=== PATIENT | male | born 1970 | race Caucasian/White ===

== ENCOUNTER 2020-06-08 18:57 | Emergency (ER) | payer OTHER ==
[2020-06-08] MEDS ORDERED: ROCEPHIN 1 Gm-D5w 50 ml Bag** 1 G/50 ML IVPB IV STA (19:17)
[2020-06-08] MEDS ORDERED: DUONEB 0.5-3 MG/3 ml Neb IH ONE ×2 (19:17→19:36)
[2020-06-08] MEDS ORDERED: solu-MEDROL 125 MG IV ONE (19:17)
[2020-06-08] MEDS ORDERED: solu-MEDROL 125 MG ONE (19:27)
[2020-06-08] MEDS ORDERED: ROCEPHIN 1 Gm-D5w 50 ml Bag** 1 G/50 ML IVPB IV ONE (19:28)
[2020-06-08] MEDS ORDERED: Sodium Chloride 0.9% 1000 ML 1,000 ML ONE (19:28)
[2020-06-08] MEDS ORDERED: Sodium Chloride 0.9% 1000 ML 1,000 ML IV SCH (19:30)
[2020-06-08 19:31] LABS: Absolute Neutrophil Ct (ANC) 4.59 (1.4-6.9); BASOPHIL % 0.5 % (0.0-0.4); Basophil (Absolute #) 0.04 (0-0.4); Eosinophil % 1.2 % (0.00-5.0); Eosinophil (Absolute #) 0.09 (0-0.5); Hematocrit 45.7 % (42-50); Hemoglobin 15.3 gm/dl (12.5-18.0); Lymphocyte (Absolute #) 2.03 (1.0-4.6); Lymphocytes % 27.1 % (24.0-44.0); Mean Cell Volume 90.9 fl (78-100); Mean Corpuscular Hemoglobin 30.4 pg (26-32); Mean Corpuscular Hgb Concent. 33.5 g/dl (32-36); Mean Platelet Volume 9.4 fl (7.5-11.0); Monocyte (Absolute #) 0.73 (0.0-1.3); Monocytes % 9.8 % (0.0-12.0); Neutrophil % 61.4 % (36.0-66.0); Platelet Count 223 K/mm3 (150-450); Red Blood Count 5.03 M/mm3 (4.1-5.6); White Blood Count 7.5 K/mm3 (4.0-10.5)
--- NOTE | 2020-06-08 19:35 | ERPHSYRPT ---
- History of Present Illness Time Seen by Provider: 06/08/20 19:15 Source: patient Exam Limitations: no limitations Patient Subjective Stated Complaint: Pt states "I just woke up an hour ago or so and I can't catch my breath. I have been to Dr. Morales and I am on antib iotics for coughing up green stuff." Triage Nursing Assessment: Pt presented alert and oriented X 3, skin pwd Pt ambulates with an upright steady gait, able to speak in clear full sentences. Pt in tachypneic, anxious, voice raspy. Physician History: 49yo male smoker with productive cough, SOB, dizziness. Woke up with severe coughing fit. Green sputum. NO fever. Smokes 2 pks a day Gradual worsening cough over past week. Timing/Duration: week(s) (1), gradual onset, worse Activities at Onset: none Severity of Dyspnea-Max: severe Severity of Dyspnea-Current: moderate Possible Cause: no prior episodes Modifying Factors: Improves With: activity, coughing, deep breath Associated Symptoms: lightheadedness, productive cough (green) Allergies/Adverse Reactions: Penicillins Allergy (Severe, Verified 06/08/20 19:10) anaphylaxis Home Medications: Buprenorphine HCl/Naloxone HCl [Buprenorphin-Naloxon 8-2 mg Sl] 1 tab SL DAILY 06/08/20 [History] Nitrofurantoin Macro 100 mg [Macrobid 100MG Capsule] 100 mg PO BID 06/08/20 [History] Tamsulosin HCl 0.4 mg PO DAILY 06/08/20 [History] Hx Tetanus, Diphtheria Vaccination/Date Given: No Hx Influenza Vaccination/Date Given: No Hx Pneumococcal Vaccination/Date Given: No Immunizations Up to Date: Yes Travel Risk - International Travel Have you traveled outside of the country in past 3 weeks: No - Coronavirus Screening Are you exhibiting any of the following symptoms?: Yes Symptoms: Shortness of Breath Close contact with a COVID-19 positive Pt in past 14-21 Days: No - Review of Systems Constitutional: Malaise, No Fever, No Chills Eyes: No Symptoms Ears, Nose, & Throat: No Symptoms Respiratory: Cough, Dyspnea, Dyspnea on Exertion (ARIAS) Cardiac: No Chest Pain, No Edema, No Syncope Abdominal/Gastrointestinal: No Abdominal Pain, No Nausea, No Vomiting, No Diarrhea Genitourinary Symptoms: No Dysuria Musculoskeletal: No Back Pain, No Neck Pain Skin: No Rash Neurological: No Dizziness, No Focal Weakness, No Sensory Changes Psychological: No Symptoms Endocrine: No Symptoms All Other Systems: Reviewed and Negative - Past Medical History Pertinent Past Medical History: Yes Neurological History: No Pertinent History ENT History: No Pertinent History Cardiac History: No Pertinent History Respiratory History: No Pertinent History Endocrine Medical History: No Pertinent History GI Medical History: No Pertinent History History: Other Psycho-Social History: No Pertinent History Male Reproductive Disorders: No Pertinent History Other Medical History: takes flomax - Past Surgical History Past Surgical History: Yes Other Surgical History: spine. left hand. liver biopsy - Social History Smoking Status: Current every day smoker How long have you smoked: years Exposure to second hand smoke: Yes Drug Use: narcotics Patient Lives Alone: Yes - Nursing Vital Signs Nursing Vital Signs: Initial Vital Signs Temperature 97.7 F 06/08/20 19:01 Pulse Rate 114 H 06/08/20 19:01 Respiratory Rate 28 H 06/08/20 19:01 Blood Pressure 153/79 06/08/20 19:01 O2 Sat by Pulse Oximetry 98 06/08/20 19:01 Pain Scale Pain Intensity 0 - Physical Exam General Appearance: mild distress, alert Eye Exam: PERRL/EOMI Ears, Nose, Throat Exam: normal ENT inspection, normal pharynx Neck Exam: normal inspection, supple Respiratory Exam: diminished breath sounds Cardiovascular/Chest Exam: normal heart sounds, regular rate/rhythm Abdominal/Gastrointestinal Exam: soft, No tenderness, No distention, No mass Extremity Exam: non-tender, normal range of motion, normal inspection, no calf tenderness, no pedal edema Neurologic Exam: alert, oriented x 3, cooperative, 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, sensation nml, No motor deficits Skin Exam: normal color, warm, No dry Lymphatic Exam: No adenopathy SpO2: 99 - Course Nursing assessment & vital signs reviewed: Yes EKG Interpreted by Me: RATE (106), Sinus Tach, NORMAL AXIS, NORMAL INTERVALS, NORMAL QRS - Radiology Exams Chest X-ray Interpretation: Interpreted by me, Negative (RLL area appears slightly increased.) Ordered Tests: Active Orders 24 hr Category Date Time Status Manager Spanish STAT Care 06/08/20 19:19 Completed EKG-ER Only STAT Care 06/08/20 19:17 Completed IV Insertion STAT Care 06/08/20 19:17 Completed Oxygen-ED Only Nasal Cannula 2 lpm Care 06/08/20 19:17 Completed CHEST 2 VIEWS (PA AND LAT) Stat Exams 06/08/20 19:18 Completed BLOOD CULTURE Stat Lab 06/08/20 19:20 Ordered CBC W DIFF Stat Lab 06/08/20 19:20 Completed CMP Stat Lab 06/08/20 19:20 Completed D-DIMER QUANTITATIVE Stat Lab 06/08/20 19:20 Completed Lactic Acid Stat Lab 06/08/20 19:35 Completed MAGNESIUM Stat Lab 06/08/20 19:20 Completed NT PRO BNP Stat Lab 06/08/20 19:20 Completed PROTIME WITH INR Stat Lab 06/08/20 19:20 Completed PTT Stat Lab 06/08/20 19:20 Completed TROPONIN Q3H Lab 06/08/20 19:20 Completed Peak Expiratory Flow Rate ONCE RT 06/08/20 19:52 Completed Respiratory Therapy Assessment DAILY RT 06/08/20 19:52 Completed Medication Summary Discontinued Medications Generic Name Dose Route Start Last Admin Trade Name Freq PRN Reason Stop Dose Admin Albuterol/Ipratropium 3 ml 06/08/20 19:17 06/08/20 19:47 Duoneb 0.5-3 Mg/3 Ml Neb IH 06/08/20 19:18 3 ml STAT ONE Administration Albuterol/Ipratropium Confirm 06/08/20 19:36 Duoneb 0.5-3 Mg/3 Ml Neb Administered 06/08/20 19:37 Dose 3 ml IH .STK-MED ONE Sodium Chloride 1,000 mls @ 100 mls/hr 06/08/20 19:30 06/08/20 21:37 Sodium Chloride 0.9% 1000 Ml IV 07/08/20 19:29 0 mls/hr .Q10H DEEPTHI Infusion Ceftriaxone Sodium/Dextrose 1 g in 50 mls @ 100 mls/hr 06/08/20 19:17 06/08/20 20:36 Rocephin 1 Gm-D5w 50 Ml Bag IV 06/08/20 19:46 Infused STAT STA Infusion Ceftriaxone Sodium/Dextrose Confirm 06/08/20 19:28 Rocephin 1 Gm-D5w 50 Ml Bag Administered 06/08/20 19:29 Dose 1 g in 50 mls @ ud IV .STK-MED ONE Sodium Chloride Confirm 06/08/20 19:28 Sodium Chloride 0.9% 1000 Ml Administered 06/08/20 19:29 Dose 1,000 mls @ ud .ROUTE .STK-MED ONE Methylprednisolone Sodium Succinate 125 mg 06/08/20 19:17 06/08/20 19:29 Solu-Medrol 125 Mg IV 06/08/20 19:18 125 mg STAT ONE Administration Methylprednisolone Sodium Succinate Confirm 06/08/20 19:27 Solu-Medrol 125 Mg Administered 06/08/20 19:28 Dose 125 mg .ROUTE .STK-MED ONE Lab/Rad Data: Laboratory Result Diagrams 06/08/20 19:06/08/20 19:20 Laboratory Results 06/08/20 06/08/20 06/08/20 Range/Units 19:35 19:20 19:20 WBC (4.0-10.5) K/mm3 RBC (4.1-5.6) M/mm3 Hgb (12.5-18.0) gm/dl Hct (42-50) % MCV (78-100) fl MCH (26-32) pg MCHC (32-36) g/dl RDW (11.5-14.0) % Plt Count (150-450) K/mm3 MPV (7.5-11.0) fl Gran % (36.0-66.0) % Eos # (Auto) (0-0.5) Absolute Lymphs (auto) (1.0-4.6) Absolute Monos (auto) (0.0-1.3) Lymphocytes % (24.0-44.0) % Monocytes % (0.0-12.0) % Eosinophils % (0.00-5.0) % Basophils % (0.0-0.4) % Absolute Granulocytes (1.4-6.9) Basophils # (0-0.4) PT 12.6 (8.83-12.87) SECONDS INR 1.11 (0.8-3.0) APTT 28.1 (24.1-36.1) SECONDS D-Dimer 437 (215-500) ng/mL Sodium (137-145) mmol/L Potassium (3.5-5.1) mmol/L Chloride (98-107) mmol/L Carbon Dioxide (22-30) mmol/L Anion Gap (5-15) MEQ/L BUN (9-20) mg/dL Creatinine (0.66-1.25) mg/dL Estimated GFR ML/MIN Glucose (74-106) mg/dL Lactic Acid 1.3 (0.4-2.0) Calcium (8.4-10.2) mg/dL Magnesium (1.6-2.3) mg/dL Total Bilirubin (0.2-1.3) mg/dL AST (17-59) U/L ALT (0-50) U/L Alkaline Phosphatase (38-126) U/L Troponin I < 0.012 (0.000-0.034) ng/mL NT-Pro-B Natriuret Pep (0-450) pg/mL Serum Total Protein (6.3-8.2) g/dL Albumin (3.5-5.0) g/dL 06/08/20 06/08/20 Range/Units 19:20 19:20 WBC 7.5 (4.0-10.5) K/mm3 RBC 5.03 (4.1-5.6) M/mm3 Hgb 15.3 (12.5-18.0) gm/dl Hct 45.7 (42-50) % MCV 90.9 (78-100) fl MCH 30.4 (26-32) pg MCHC 33.5 (32-36) g/dl RDW 13.0 (11.5-14.0) % Plt Count 223 (150-450) K/mm3 MPV 9.4 (7.5-11.0) fl Gran % 61.4 (36.0-66.0) % Eos # (Auto) 0.09 (0-0.5) Absolute Lymphs (auto) 2.03 (1.0-4.6) Absolute Monos (auto) 0.73 (0.0-1.3) Lymphocytes % 27.1 (24.0-44.0) % Monocytes % 9.8 (0.0-12.0) % Eosinophils % 1.2 (0.00-5.0) % Basophils % 0.5 (0.0-0.4) % Absolute Granulocytes 4.59 (1.4-6.9) Basophils # 0.04 (0-0.4) PT (8.83-12.87) SECONDS INR (0.8-3.0) APTT (24.1-36.1) SECONDS D-Dimer (215-500) ng/mL Sodium 137 (137-145) mmol/L Potassium 3.7 (3.5-5.1) mmol/L Chloride 100 (98-107) mmol/L Carbon Dioxide 28 (22-30) mmol/L Anion Gap 11.9 (5-15) MEQ/L BUN 20 (9-20) mg/dL Creatinine 1.13 (0.66-1.25) mg/dL Estimated GFR > 60.0 ML/MIN Glucose 92 (74-106) mg/dL Lactic Acid (0.4-2.0) Calcium 9.5 (8.4-10.2) mg/dL Magnesium 2.1 (1.6-2.3) mg/dL Total Bilirubin 1.20 (0.2-1.3) mg/dL AST 74 H (17-59) U/L ALT 68 H (0-50) U/L Alkaline Phosphatase 79 (38-126) U/L Troponin I (0.000-0.034) ng/mL NT-Pro-B Natriuret Pep 30.4 (0-450) pg/mL Serum Total Protein 8.4 H (6.3-8.2) g/dL Albumin 4.7 (3.5-5.0) g/dL - Progress Progress: improved Air Movement: good Progress Note: 06/08/20 21:28 Pneumonia workup CXR with no obvious infiltrate. Labs normal Pt with tachycardia but not hypoxic. DuoNeb, steroids. Pt breathing much better. Ambulating in room without drop in O2. Rx cipro, prednisone, MDI and cough suppressant. DC home. Blood Culture(s) Obtained: Yes Antibiotics given: Yes Counseled pt/family regarding: lab results, diagnosis, need for follow-up, rad results, smoking cessation - Departure Departure Disposition: Home Clinical Impression: Acute bronchitis Qualifiers: Bronchitis organism: unspecified organism Qualified Code(s): J20.9 - Acute bronchitis, unspecified Condition: Stable Critical Care Time: No Referrals: DIANA URIBE [Primary Care Provider] - Instructions: Acute Bronchitis, Adult (DC), Shortness of Breath (Dyspnea) (DC) Additional Instructions: MOnitor symptoms closely. Take meds as prescribed. STOP smoking or at least cut down. Follow up with Dr. Uribe for recheck Return to ER if worse. Prescriptions: Ciprofloxacin [Cipro 500 MG] 500 mg PO BID #14 tablet Prednisone 20 mg [Deltasone 20 mg] 40 mg PO DAILY 5 Days #10 tablet Albuterol 8 gm Mdi Hfa [Ventolin Hfa MDI] 8 gm IH Q4H PRN #1 [email or web address] PRN Reason: Shortness Of Breath/Wheezing
[2020-06-08 19:38] LABS: INR 1.11 (0.8-3.0); PROTIME 12.6 SECONDS (8.83-12.87)
[2020-06-08 19:41] LABS: PTT 28.1 SECONDS (24.1-36.1)
[2020-06-08 19:52] LABS: ALBUMIN 4.7 g/dL (3.5-5.0); ALKALINE PHOSPHATASE 79 U/L (38-126); ANION GAP 11.9 MEQ/L (5-15); BLOOD UREA NITROGEN 20 mg/dL (9-20); CHLORIDE 100 mmol/L (98-107); Calcium 9.5 mg/dL (8.4-10.2); Carbon Dioxide 28 mmol/L (22-30); Creatinine 1 1.13 mg/dL (0.66-1.25); EST GLOMERULAR FILTRATION RATE > 60.0 ML/MIN; Glucose 92 mg/dL (74-106); MAGNESIUM 2.1 mg/dL (1.6-2.3); NT PRO BNP 30.4 pg/mL (0-450); Potassium 3.7 mmol/L (3.5-5.1); SGOT/AST 74 U/L (17-59); SGPT/ALT 68 U/L (0-50); SODIUM 137 mmol/L (137-145); Total Protein 8.4 g/dL (6.3-8.2)
[2020-06-08 21:41] VITALS: BP 125/70; PULSE 96
--- NOTE | 2020-06-08 22:14 | XRAY ---
Indication: Cough, dyspnea, and dizziness. Comparison: February 21, 2020. PA/lateral chest remains hyperinflated and clear with incidental right apical calcified granuloma. Heart is not enlarged. Bony thorax intact. No new/acute findings.
[2020-06-09 05:13] VITALS: O2SAT 99
== END 2020-06-08 21:38 | disposition home or self-care (01) ==
LOC: ED 18:57
DX: J20.9 Acute bronchitis, unspecified (principal)
CPT/HCPCS: 36000; 36415; 71046; 80053; 83605; 83735; 83880; 84484; 85025; 85379; 85610; 85730; 87040; 93005; 93041; 94150; 94640; 96360; 96361; 96374; 99284; J0696; J2930; A9270-GY

== ENCOUNTER 2024-10-05 20:39 | Emergency (ER) | payer OTHER ==
--- NOTE | 2024-10-05 20:57 | ERPHSYRPT ---
- History of Present Illness Time Seen by Provider: 10/05/24 20:57 Source: patient Exam Limitations: no limitations Physician History: This is a 53-year-old white male patient who presents by private vehicle because of rapid heart rate sensation intermittently for the last 3 days. Patient denies chest pain. He only gets short of breath when his heart is racing fast p er his report. Patient states that he does smoke tobacco and drinks coffee but he does not use energy drinks. Patient does have prostate issues. There is been no new medications. Patient has been under a lot of stress lately and that also seems to increase his heart rate. Patient has never had a heart attack and has never been diagnosed with coronary artery disease. Timing/Duration: day(s) (3), intermittent Activities at Onset: none Severity of Pain-Max: none Severity of Pain-Current: none Modifying Factors: Improves With: other (Sensation of rapid heart rate) Nitro Today/Relief: no nitro taken today Aspirin Treatment Today: no aspirin today Associated Symptoms: denies symptoms, No chest pain Prior Chest Pain/Cardiac Workup: no prior chest pain, no prior cardiac workup Allergies/Adverse Reactions: Penicillins Allergy (Severe, Verified 10/05/24 21:14) anaphylaxis Home Medications: Buprenorphine HCl/Naloxone HCl [Buprenorphin-Naloxon 8-2 mg Sl] 1 tab SL DAILY 06/08/20 [History] Tamsulosin HCl 0.4 mg PO DAILY 06/08/20 [History] Hx Tetanus, Diphtheria Vaccination/Date Given: No Hx Influenza Vaccination/Date Given: No Hx Pneumococcal Vaccination/Date Given: No Travel Risk - International Travel Have you traveled outside of the country in past 3 weeks: No - Emerging Infectious Disease Are you exhibiting symptoms associated with any current EIDs: No - Review of Systems Constitutional: No Symptoms Eyes: No Symptoms Ears, Nose, & Throat: No Symptoms Respiratory: No Symptoms Cardiac: Palpitations, No Chest Pain Abdominal/Gastrointestinal: No Symptoms Genitourinary Symptoms: No Symptoms Musculoskeletal: No Symptoms Skin: No Symptoms Neurological: No Symptoms Psychological: No Symptoms Endocrine: No Symptoms Hematologic/Lymphatic: No Symptoms Immunological/Allergic: No Symptoms All Other Systems: Reviewed and Negative - Past Medical History Pertinent Past Medical History: Yes Neurological History: No Pertinent History ENT History: No Pertinent History Cardiac History: No Pertinent History Respiratory History: No Pertinent History Endocrine Medical History: No Pertinent History GI Medical History: No Pertinent History History: Other Psycho-Social History: No Pertinent History Male Reproductive Disorders: No Pertinent History Other Medical History: takes flomax - Past Surgical History Past Surgical History: Yes Other Surgical History: spine. left hand. liver biopsy - Social History Smoking Status: Current every day smoker How long have you smoked: years Exposure to second hand smoke: Yes Drug Use: narcotics Patient Lives Alone: Yes - Nursing Vital Signs Nursing Vital Signs: Initial Vital Signs Temperature 98.9 F 10/05/24 21:03 Pulse Rate 99 H 10/05/24 21:03 Respiratory Rate 16 10/05/24 21:03 Blood Pressure 144/90 10/05/24 21:03 O2 Sat by Pulse Oximetry 94 L 10/05/24 21:03 Pain Scale Pain Intensity 0 - Physical Exam General Appearance: no apparent distress, alert, anxiety Eye Exam: PERRL/EOMI, eyes nml inspection Ears, Nose, Throat Exam: normal ENT inspection, moist mucous membranes Neck Exam: normal inspection, non-tender, supple, full range of motion Respiratory Exam: normal breath sounds, lungs clear, No chest tenderness, No respiratory distress Cardiovascular Exam: tachycardia Gastrointestinal/Abdomen Exam: soft, normal bowel sounds, No tenderness Rectal Exam: not done Back Exam: normal inspection, normal range of motion, No CVA tenderness, No vertebral tenderness Extremity Exam: normal inspection, normal range of motion, pelvis stable Neurologic Exam: alert, oriented x 3, cooperative, 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 QTc is 431.) Ordered Tests: Active Orders 24 hr Category Date Time Status EKG-ER Only STAT Care 10/05/24 21:20 Active IV Insertion STAT Care 10/05/24 21:20 Active Pulse Oximetry (ED) STAT Care 10/05/24 21:20 Active CBC W DIFF Stat Lab 10/05/24 21:00 Completed CMP Stat Lab 10/05/24 21:00 Completed MAGNESIUM Stat Lab 10/05/24 21:00 Completed TROPONIN Q4H Lab 10/05/24 21:00 Completed TROPONIN Q4H Lab 10/06/24 01:30 Ordered TROPONIN Q4H Lab 10/06/24 05:30 Ordered Medication Summary Discontinued Medications Generic Name Dose Route Start Last Admin Trade Name Freq PRN Reason Stop Dose Admin Metoprolol Tartrate 25 mg 10/05/24 21:20 10/05/24 21:28 Metoprolol Tartrate 25 Mg Tab PO 10/05/24 21:21 25 mg STAT ONE Administration Metoprolol Tartrate Confirm 10/05/24 21:26 Metoprolol Tartrate 25 Mg Tab Administered 10/05/24 21:27 Dose 25 mg .ROUTE .[employer] ONE Lab/Rad Data: Laboratory Result Diagrams 10/05/24 21:00 10/05/24 21:00 Laboratory Results 10/05/24 10/05/24 10/05/24 Range/Units 21:00 21:00 21:00 WBC 7.8 (4.23-9.07) x10^3/uL RBC 4.53 L (4.63-6.08) x10^6/uL Hgb 14.9 (13.7-17.5) g/dL Hct 43.3 (40.1-51.0) % MCV 95.6 H (79.0-92.2) fL MCH 32.9 H (25.7-32.2) pg MCHC 34.4 (32.3-36.5) g/dL RDW 12.3 (11.6-14.4) % Plt Count 208 (163-337) x10^3/uL MPV 9.3 L (9.4-12.4) fL Gran % 52.0 (34.0-67.9) % Immature Gran % (Auto) 0.3 (0.001-0.429) % Nucleat RBC Rel Count 0.0 (0.00-0.2) % Eos # (Auto) 0.16 (0.04-0.54) x10^3/uL Immature Gran # (Auto) 0.02 (0.001-0.031) x10^3u/L Absolute Lymphs (auto) 2.80 (1.32-3.57) x10^3/uL Absolute Monos (auto) 0.70 (0.30-0.82) x10^3/uL Absolute Nucleated RBC 0.00 (0.00-0.012) x10^3u/L Lymphocytes % 36.0 (21.8-53.1) % Monocytes % 9.0 (5.3-12.2) % Eosinophils % 2.1 (0.8-7.0) % Basophils % 0.6 (0.2-1.2) % Absolute Granulocytes 4.04 (1.78-5.38) x10^3/uL Basophils # 0.05 (0.01-0.08) x10^3/uL Sodium 140 (135-145) mmol/L Potassium 3.6 (3.5-5.1) mmol/L Chloride 99 (98-107) mmol/L Carbon Dioxide 31 H (22-30) mmol/L Anion Gap 13.0 (5-15) MEQ/L BUN 13 (9-20) mg/dL Creatinine 1.06 (0.66-1.25) mg/dL Estimated GFR 83.9 ML/MIN Glucose 89 (74-106) mg/dL Calcium 8.9 (8.4-10.2) mg/dL Magnesium 2.0 (1.6-2.3) mg/dL Total Bilirubin 0.90 (0.2-1.3) mg/dL AST 61 H (17-59) U/L ALT 42 (0-50) U/L Alkaline Phosphatase 81 (38-126) U/L Troponin I < 0.012 (0.000-0.033) ng/mL Serum Total Protein 7.2 (6.3-8.2) g/dL Albumin 4.6 (3.5-5.0) g/dL - Progress Progress: improved, re-examined Air Movement: good Progress Note: 10/05/24 21:36 My medical decision making and the assignment of moderate complexity to this patient's medical issue today is based on review of the patient's past medical history, review of the patient's medication list, reviewed patient drug allergy list, history present illness and physical findings on examination. The workup in this patient includes placement of a intravenous line, CBC, CMP, magnesium level, troponin level, twelve-lead EKG. Differential diagnosis includes but is not limited to electrolyte abnormalities, arrhythmia, myocardial infarction, electrolyte abnormalities 10/05/24 22:09 I interpreted the patient's laboratory data results. Based on the laboratory data results, there are no acute, emergent medical issues. I reexamined the patient. He has no shortness of breath and he has no chest pain. Blood Culture(s) Obtained: No Antibiotics given: No Counseled pt/family regarding: lab results, diagnosis, need for follow-up Medical Desision Making - Diagnostic Testing Diagnostic test were ordered, analyzed, and reviewed by me: Yes - Risk of complications Low Risk: Low risk of morbidity from additional dx testing or treatment - Departure Departure Disposition: Home Clinical Impression: Palpitations Condition: Stable Critical Care Time: No Referrals: DIANA URIBE [Primary Care Provider] - Follow up/PCP as directed Additional Instructions: Drink plenty of clear liquids but avoid caffeinated drinks. Decrease your smoking of tobacco. Call your primary care provider tomorrow, 10/06/2024, to make arrangements for further evaluation and management.
[2024-10-05 21:05] VITALS: TEMP 98.9
[2024-10-05] MEDS ORDERED: Lopressor 25MG Tab ONE (21:26)
[2024-10-05 21:28] LABS: Absolute Neutrophil Ct (ANC) 4.04 x10^3/uL (1.78-5.38); BASOPHIL % 0.6 % (0.2-1.2); Basophil (Absolute #) 0.05 x10^3/uL (0.01-0.08); Eosinophil % 2.1 % (0.8-7.0); Eosinophil (Absolute #) 0.16 x10^3/uL (0.04-0.54); Hematocrit 43.3 % (40.1-51.0); Hemoglobin 14.9 g/dL (13.7-17.5); IMMATURE GRAN # 0.02 x10^3u/L (0.001-0.031); IMMATURE GRAN % 0.3 % (0.001-0.429); Mean Cell Volume 95.6 fL (79.0-92.2); Mean Corpuscular Hemoglobin 32.9 pg (25.7-32.2); Mean Corpuscular Hgb Concent. 34.4 g/dL (32.3-36.5); Mean Platelet Volume 9.3 fL (9.4-12.4); Platelet Count 208 x10^3/uL (163-337); Red Blood Count 4.53 x10^6/uL (4.63-6.08); Red Cell Distribution Width 12.3 % (11.6-14.4); White Blood Count 7.8 x10^3/uL (4.23-9.07)
[2024-10-05] MEDS: Lopressor 25MG Tab PO ONE (21:28)
[2024-10-05 21:42] LABS: ALBUMIN 4.6 g/dL (3.5-5.0); BILIRUBIN,TOTAL 0.9 mg/dL (0.2-1.3); Calcium 8.9 mg/dL (8.4-10.2); Creatinine 1 1.06 mg/dL (0.66-1.25); EST GLOMERULAR FILTRATION RATE 83.9 ML/MIN; Potassium 3.6 mmol/L (3.5-5.1); Total Protein 7.2 g/dL (6.3-8.2)
[2024-10-05 23:24] VITALS: BP 108/72; PULSE 102; RESP 18; O2SAT 99
== END 2024-10-05 23:07 | disposition home or self-care (01) ==
LOC: ED 20:39
DX: R00.2 Palpitations (principal); Z79.891 Long term (current) use of opiate analgesic; Z79.899 Other long term (current) drug therapy; Z72.0 Tobacco use
CPT/HCPCS: 36415; 80053; 83735; 84484; 85025; 93005; 94760; 99284; A9270-GY

== ENCOUNTER 2024-10-17 09:49 | Emergency (ER) | payer OTHER ==
--- NOTE | 2024-10-17 10:23 | ERPHSYRPT ---
- History of Present Illness Time Seen by Provider: 10/17/24 10:19 Exam Limitations: no limitations Physician History: Patient is a 54-year-old male presents to our ED for evaluation of right upper extremity numbness, feeling cognitively cloudy. Patient advises that he has been experiencing intermittent heart palpitations. No romi chest pain. No dizziness no syncope. No associated nausea vomiting or diaphoresis. Patient states the right arm numbness and cloudy cognition started this morning at approximately 5:30 AM. The heart palpitations have been ongoing for approximately 2 weeks. Patient is scheduled to see a director of math tomorrow morning. No trauma no fever. Patient is a smoker. He admits to an intermittent cough that has been ongoing for 10 years. Patient states he othe rwise feels well. He voices no other complaints or concerns at this time. 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 Patient has a drill in his right upper extremity all the time. Patient believes that this may be contributing to his right upper extremity numbness. Portions of this note were created with voice recognition technology. There may be grammatical, spelling, punctuation or sound alike errors Timing/Duration: today Severity: moderate Modifying Factors: Improves With: nothing Associated Symptoms: other (Heart palpitations) Allergies/Adverse Reactions: Penicillins Allergy (Severe, Verified 10/17/24 10:07) anaphylaxis Home Medications: Buprenorphine HCl/Naloxone HCl [Buprenorphin-Naloxon 8-2 mg Sl] 1 tab SL DAILY 06/08/20 [History] Tamsulosin HCl 0.4 mg PO DAILY 06/08/20 [History] Baclofen 5 mg PO BID PRN 10/17/24 [History] Famotidine 20 mg [Pepcid 20 MG] 20 mg PO HS 10/17/24 [History] Naproxen 500 mg [Naprosyn 500 MG] 500 mg PO BID 10/17/24 [History] Testosterone Cypionate 100 mg IM WEEKLY 10/17/24 [History] Hx Tetanus, Diphtheria Vaccination/Date Given: No Hx Influenza Vaccination/Date Given: No Hx Pneumococcal Vaccination/Date Given: No Travel Risk - Emerging Infectious Disease Are you exhibiting symptoms associated with any current EIDs: No - Review of Systems Constitutional: No Symptoms, No Fever, No Chills Eyes: No Symptoms Ears, Nose, & Throat: No Symptoms Respiratory: No Symptoms, No Cough, No Dyspnea Cardiac: No Symptoms, No Chest Pain, No Edema, No Syncope Abdominal/Gastrointestinal: No Symptoms, No Abdominal Pain, No Nausea, No Vomiting, No Diarrhea Genitourinary Symptoms: No Symptoms, No Dysuria Musculoskeletal: No Symptoms, No Back Pain, No Neck Pain Skin: No Symptoms, No Rash Neurological: No Symptoms, No Dizziness, No Focal Weakness, No Sensory Changes Psychological: No Symptoms Endocrine: No Symptoms Hematologic/Lymphatic: No Symptoms Immunological/Allergic: No Symptoms All Other Systems: Reviewed and Negative - Past Medical History Pertinent Past Medical History: Yes Neurological History: No Pertinent History ENT History: No Pertinent History Cardiac History: No Pertinent History Respiratory History: No Pertinent History Endocrine Medical History: No Pertinent History GI Medical History: No Pertinent History History: Other Psycho-Social History: No Pertinent History Male Reproductive Disorders: No Pertinent History Other Medical History: takes flomax - Past Surgical History Past Surgical History: Yes Other Surgical History: spine. left hand. liver biopsy - Social History Smoking Status: Current every day smoker How long have you smoked: years Exposure to second hand smoke: Yes Drug Use: narcotics Patient Lives Alone: Yes - Social Determinants of Health Will the patient participate in the screening: Declined to provide - Nursing Vital Signs Nursing Vital Signs: Initial Vital Signs Temperature 98.4 F 10/17/24 10:03 Pulse Rate 99 H 10/17/24 10:03 Respiratory Rate 18 10/17/24 10:03 Blood Pressure 139/117 10/17/24 10:03 O2 Sat by Pulse Oximetry 97 10/17/24 10:03 Pain Scale Pain Intensity 0 - Physical Exam General Appearance: no apparent distress, alert Eye Exam: PERRL/EOMI, eyes nml inspection Ears, Nose, Throat Exam: normal ENT inspection, TMs normal, pharynx normal, moist mucous membranes Neck Exam: normal inspection, non-tender, supple, full range of motion Respiratory Exam: normal breath sounds, lungs clear, airway intact, No respiratory distress Cardiovascular Exam: regular rate/rhythm, normal heart sounds, normal peripheral pulses Gastrointestinal/Abdomen Exam: soft, normal bowel sounds, No tenderness, No mass Back Exam: normal inspection, normal range of motion, No CVA tenderness, No vertebral tenderness Extremity Exam: normal inspection, normal range of motion, pelvis stable Neurologic Exam: alert, oriented x 3, cooperative, normal mood/affect, sensation nml, No motor deficits Skin Exam: normal color, warm, dry, No rash Lymphatic Exam: No adenopathy SpO2 Interpretation: normal SpO2: 96 O2 Delivery: Room Air - Course Nursing assessment & vital signs reviewed: Yes EKG Interpreted by Me: RATE (80), Sinus Rhythm, NORMAL AXIS, NORMAL INTERVALS, N ORMAL QRS - Radiology Exams Chest X-ray Interpretation: Teleradiologist Report (Lung granuloma, no new or acute findings) - CT Exams Head CT Interpretation: Tele-radiologist Report (No acute findings observed CTA head/no LVO) Other CT Interpretation: Tele-radiologist Report (No acute findings observed CTA neck/no LVO) Ordered Tests: Active Orders 24 hr Category Date Time Status AMA [Release AMA] OM.NOW Care 10/17/24 15:53 Completed Air Brush Operator STAT Care 10/17/24 10:17 Completed EKG-ER Only STAT Care 10/17/24 10:16 Completed IV Insertion STAT Care 10/17/24 10:16 Completed Pulse Oximetry (ED) STAT Care 10/17/24 10:16 Completed CHEST 1 VIEW (PORTABLE) Stat Exams 10/17/24 10:[address] ANGIOGRAPHY NECK [CT] Stat Exams 10/17/24 14:54 Completed CTA HEAD W AND/OR WO CONTRAST [CT] Stat Exams 10/17/24 14:53 Completed HEAD WITHOUT CONTRAST [CT] Stat Exams 10/17/24 13:54 Completed CBC W DIFF Stat Lab 10/17/24 10:14 Completed CMP Stat Lab 10/17/24 10:14 Completed NT PRO BNPII Stat Lab 10/17/24 10:14 Completed TROPONIN Q4H Lab 10/17/24 10:14 Completed TROPONIN Q4H Lab 10/17/24 12:32 Completed Medication Summary Discontinued Medications Generic Name Dose Route Start Last Admin Trade Name Freq PRN Reason Stop Dose Admin Aspirin 324 mg 10/17/24 14:55 10/17/24 15:02 Aspirin 81 Mg Tab.Chew PO 10/17/24 14:56 324 mg STAT ONE Administration Aspirin Confirm 10/17/24 14:59 Aspirin 81 Mg Tab.Chew Administered 10/17/24 15:00 Dose 324 mg .ROUTE .STK-MED ONE Sodium Chloride 1,000 mls @ 75 mls/hr 10/17/24 15:00 10/17/24 15:05 Sodium Chloride 0.9% 1000 Ml IV 11/16/24 14:59 75 mls/hr .[id number] [id number] Administration Sodium Chloride Confirm 10/17/24 15:00 Sodium Chloride 0.9% 1000 Ml Administered 10/17/24 15:01 Dose 1,000 mls @ ud .ROUTE .STK-MED ONE Lab/Rad Data: Laboratory Result Diagrams 10/17/24 10:14 10/17/24 10:14 Laboratory Results 10/17/24 10/17/24 10/17/24 Range/Units 12:32 10:32 10:14 WBC (4.23-9.07) x10^3/uL RBC (4.63-6.08) x10^6/uL Hgb (13.7-17.5) g/dL Hct (40.1-51.0) % MCV (79.0-92.2) fL MCH (25.7-32.2) pg MCHC (32.3-36.5) g/dL RDW (11.6-14.4) % Plt Count (163-337) x10^3/uL MPV (9.4-12.4) fL Gran % (34.0-67.9) % Immature Gran % (Auto) (0.001-0.429) % Nucleat RBC Rel Count (0.00-0.2) % Eos # (Auto) (0.04-0.54) x10^3/uL Immature Gran # (Auto) (0.001-0.031) x10^3u/L Absolute Lymphs (auto) (1.32-3.57) x10^3/uL Absolute Monos (auto) (0.30-0.82) x10^3/uL Absolute Nucleated RBC (0.00-0.012) x10^3u/L Lymphocytes % (21.8-53.1) % Monocytes % (5.3-12.2) % Eosinophils % (0.8-7.0) % Basophils % (0.2-1.2) % Absolute Granulocytes (1.78-5.38) x10^3/uL Basophils # (0.01-0.08) x10^3/uL Sodium (135-145) mmol/L Potassium (3.5-5.1) mmol/L Chloride (98-107) mmol/L Carbon Dioxide (22-30) mmol/L Anion Gap (5-15) MEQ/L BUN (9-20) mg/dL Creatinine (0.66-1.25) mg/dL Estimated GFR ML/MIN Glucose (74-106) mg/dL Calcium (8.4-10.2) mg/dL Total Bilirubin (0.2-1.3) mg/dL AST (17-59) U/L ALT (0-50) U/L Alkaline Phosphatase (38-126) U/L Troponin I < 0.012 (0.000-0.033) ng/mL NT-Pro-B Natriuret Pep 20.8 (<300) pg/mL Serum Total Protein (6.3-8.2) g/dL Albumin (3.5-5.0) g/dL Influenza Type A Ag NEGATIVE (NEGATIVE) Influenza Type B Ag NEGATIVE (NEGATIVE) RSV (PCR) NEGATIVE (NEGATIVE) SARS-CoV-2 (PCR) NEGATIVE (NEGATIVE) 10/17/24 10/17/24 10/17/24 Range/Units 10:14 10:14 10:14 WBC 6.9 (4.23-9.07) x10^3/uL RBC 4.90 (4.63-6.08) x10^6/uL Hgb 16.3 (13.7-17.5) g/dL Hct 47.8 (40.1-51.0) % MCV 97.6 H (79.0-92.2) fL MCH 33.3 H (25.7-32.2) pg MCHC 34.1 (32.3-36.5) g/dL RDW 12.6 (11.6-14.4) % Plt Count 248 (163-337) x10^3/uL MPV 8.7 L (9.4-12.4) fL Gran % 62.8 (34.0-67.9) % Immature Gran % (Auto) 0.4 (0.001-0.429) % Nucleat RBC Rel Count 0.0 (0.00-0.2) % Eos # (Auto) 0.11 (0.04-0.54) x10^3/uL Immature Gran # (Auto) 0.03 (0.001-0.031) x10^3u/L Absolute Lymphs (auto) 1.77 (1.32-3.57) x10^3/uL Absolute Monos (auto) 0.60 (0.30-0.82) x10^3/uL Absolute Nucleated RBC 0.00 (0.00-0.012) x10^3u/L Lymphocytes % 25.8 (21.8-53.1) % Monocytes % 8.7 (5.3-12.2) % Eosinophils % 1.6 (0.8-7.0) % Basophils % 0.7 (0.2-1.2) % Absolute Granulocytes 4.31 (1.78-5.38) x10^3/uL Basophils # 0.05 (0.01-0.08) x10^3/uL Sodium 139 (135-145) mmol/L Potassium 4.0 (3.5-5.1) mmol/L Chloride 101 (98-107) mmol/L Carbon Dioxide 27 (22-30) mmol/L Anion Gap 14.3 (5-15) MEQ/L BUN 14 (9-20) mg/dL Creatinine 0.89 (0.66-1.25) mg/dL Estimated GFR 101.8 ML/MIN Glucose 112 H (74-106) mg/dL Calcium 9.1 (8.4-10.2) mg/dL Total Bilirubin 0.60 (0.2-1.3) mg/dL AST 58 (17-59) U/L ALT 47 (0-50) U/L Alkaline Phosphatase 77 (38-126) U/L Troponin I < 0.012 (0.000-0.033) ng/mL NT-Pro-B Natriuret Pep (<300) pg/mL Serum Total Protein 7.6 (6.3-8.2) g/dL Albumin 4.8 (3.5-5.0) g/dL Influenza Type A Ag (NEGATIVE) Influenza Type B Ag (NEGATIVE) RSV (PCR) (NEGATIVE) SARS-CoV-2 (PCR) (NEGATIVE) - Progress Progress: improved Progress Note: Case discussed with hospitalist Dr. Sanchez who requests CT head and teleneuro consultation in light of patient's right upper extremity numbness. CT head ordered. We will consult teleneuro after obtaining results 10/17/24 13:55 Teleneurologist feels that patient may have had a TIA. CTA head neck ordered. CTA head neck completed. Upon returning from CTA patient decided to go home. Patient stated he feels fine and that he would return if symptoms reoccurred. We explained to patient that if he had a TIA that a major stroke would potentially be occurring in the next few days. And spite of discussing the risk s of leaving patient decided to leave AMA. Patient is of sound mind. Patient is appropriate to make informed and independent medical decisions. Patient understands that leaving AGAINST MEDICAL ADVICE can result in delayed diagnosis, increased risk of morbidity, mortality, short and long-term disability including . In spite of these risks, patient has decided to leave AGAINST MEDICAL ADVICE. Patient understands that he may return to our ED at any point if he reconsiders. Patient agrees to follow-up with his primary care doctor within 48 hours for reevaluation. Patient voices no other complaints or concerns at this time. We will release patient AGAINST MEDICAL ADVICE per their request. Complexity of problem addressed is moderate acute complicated no critical care time. Complex of data reviewed and analyzed is extensive. Test ordered chest reviewed results analyzed and correlated clinically with history and physical exam. Management discussed with hospitalist and neurologist. Risk of complication and or risk of morbidity/mortality of patient management is high. Patient requires hospitalization for further evaluation and treatment. Vital stable. Time spent to discharge patient AMA is approximately 15 minutes. No social determinants of health present to impede follow-up. Portions of this note were created with voice recognition technology. There may be grammatical, spelling, punctuation or sound alike errors 10/17/24 15:56 Counseled pt/family regarding: lab results, diagnosis, rad results - Departure Departure Disposition: Observation Clinical Impression: Heart palpitations, Arm numbness, Cough, Smoker, TIA (transient ischemic attack) Condition: Stable Critical Care Time: No Referrals: DIANA URIBE [Primary Care Provider] - Follow up/PCP as directed
[2024-10-17 10:32] LABS: Absolute Neutrophil Ct (ANC) 4.31 x10^3/uL (1.78-5.38); BASOPHIL % 0.7 % (0.2-1.2); Basophil (Absolute #) 0.05 x10^3/uL (0.01-0.08); Eosinophil % 1.6 % (0.8-7.0); Eosinophil (Absolute #) 0.11 x10^3/uL (0.04-0.54); Hematocrit 47.8 % (40.1-51.0); Hemoglobin 16.3 g/dL (13.7-17.5); IMMATURE GRAN # 0.03 x10^3u/L (0.001-0.031); IMMATURE GRAN % 0.4 % (0.001-0.429); Lymphocyte (Absolute #) 1.77 x10^3/uL (1.32-3.57); Lymphocytes % 25.8 % (21.8-53.1); Mean Cell Volume 97.6 fL (79.0-92.2); Mean Corpuscular Hemoglobin 33.3 pg (25.7-32.2); Mean Corpuscular Hgb Concent. 34.1 g/dL (32.3-36.5); Mean Platelet Volume 8.7 fL (9.4-12.4); Monocytes % 8.7 % (5.3-12.2); Neutrophil % 62.8 % (34.0-67.9); Platelet Count 248 x10^3/uL (163-337); Red Cell Distribution Width 12.6 % (11.6-14.4); White Blood Count 6.9 x10^3/uL (4.23-9.07)
[2024-10-17 10:38] VITALS: TEMP 98.4
--- NOTE | 2024-10-17 10:43 | XRAY ---
Indication: Chest pain. Comparison: October 06, 2023 Portable chest unchanged again demonstrating normal heart and lungs with incidental right apical calcified granuloma. Bony thorax intact with minimal degenerative changes. No new/acute findings.
[2024-10-17 10:48] LABS: ALBUMIN 4.8 g/dL (3.5-5.0); ANION GAP 14.3 MEQ/L (5-15); BILIRUBIN,TOTAL 0.6 mg/dL (0.2-1.3); Calcium 9.1 mg/dL (8.4-10.2); Creatinine 1 0.89 mg/dL (0.66-1.25); EST GLOMERULAR FILTRATION RATE 101.8 ML/MIN; Total Protein 7.6 g/dL (6.3-8.2)
[2024-10-17 11:08] LABS: INFLUENZA A NEGATIVE (NEGATIVE); INFLUENZA B NEGATIVE (NEGATIVE); RESPIRATORY SYNCTIAL VIRUS NEGATIVE (NEGATIVE); SARS-CoV-2 Xpert Express NEGATIVE (NEGATIVE)
[2024-10-17 13:55] VITALS: RESP 12
--- NOTE | 2024-10-17 14:46 | XRAY ---
Indication: Right arm numbness. Multiple contiguous axial images obtained through the head without contrast. Comparison: None Normal appearing brain parenchyma, ventricles, and bony calvarium. Mild mucosal thickening both ethmoid sinuses. Remaining visualized paranasal sinuses and mastoid air cells are clear. Impression: Normal CT head without contrast exam. Incidental mild paranasal sinus disease.
[2024-10-17] MEDS ORDERED: BABY ASPIRIN 81 MG CHEW ONE (14:59)
[2024-10-17] MEDS ORDERED: Sodium Chloride 0.9% 1000 ML 1,000 ML ONE (15:00)
[2024-10-17] MEDS: BABY ASPIRIN 81 MG CHEW PO ONE (15:02)
[2024-10-17] MEDS: Sodium Chloride 0.9% 1000 ML 1,000 ML IV SCH (15:05)
[2024-10-17 15:48] VITALS: BP 140/115; PULSE 83; O2SAT 96
--- NOTE | 2024-10-17 17:04 | XRAY ---
Indication: Right arm numbness. Normal CT head. Conventional contrast enhanced CTA neck performed using 80 cc Isovue 370 contrast. 2-D sagittal and coronal reformatted images obtained. Additional 3-D reformatted images using separate workstation. Comparison: None Normal CTA appearance to aortic arch including right brachiocephalic, left common carotid, and left subclavian arteries. Normal CTA appearance to common carotid, carotid bulb, internal carotid, and external carotid arteries bilaterally. Normal CTA appearance to vertebral arteries bilaterally. Scattered prominent cervical and submandibular lymph nodes, largest right submandibular measuring 1.2 x 1.9 cm. Parotid and submandibular glands are bilaterally symmetric. Thyroid gland enhances homogeneously. Supra and infraglottic airway widely patent. Lung apices clear. Osseous structures intact with mild/moderate multilevel cervical degenerative spondylosis and remote C5-C6 fusion. No suspicious bony lesions. Patient edentulous. Impression: 1. Normal CTA neck with contrast exam. 2. Incidental nonspecific prominent cervical/submandibular lymph nodes and chronic bony findings
--- NOTE | 2024-10-17 17:08 | XRAY ---
Indication: Right arm numbness. Normal CT head. Conventional contrast enhanced CTA head performed using 80 cc Isovue 370 contrast. 2-D sagittal and coronal reformatted images obtained. Additional 3-D reformatted images using separate workstation. Comparison: None Normal CTA appearance to the distal internal carotid arteries, carotid terminus, A1, and M1 branches bilaterally. More distal anterior cerebral and middle cerebral arteries are also normal in CTA appearance bilaterally. Posterior circulation demonstrates normal CTA appearance to basilar, left/right posterior cerebral, and left/right superior cerebellar arteries. Venous sinuses/drainage unremarkable. No abnormal enhancing intra or extra-axial brain mass. Impression: Normal CTA head with contrast exam.
== END 2024-10-17 15:57 | disposition left against medical advice (07) ==
LOC: ED 09:49
DX: R00.2 Palpitations (principal); R20.1 Hypoesthesia of skin; R05.9 Cough, unspecified; F17.200 Nicotine dependence, unspecified, uncomplicated; G45.9 Transient cerebral ischemic attack, unspecified; Z79.891 Long term (current) use of opiate analgesic; Z79.899 Other long term (current) drug therapy
CPT/HCPCS: 0241U; 36415; 70450; 70496; 70498; 71045; 80053; 83880; 84484; 85025; 93005; 93041; 94760; 99285; Q3014; A9270-GY